=== PATIENT | female | born 1955 | race Caucasian/White ===

== ENCOUNTER 2018-04-14 05:33 | Day surgery (SDC) | payer OTHER ==
[2018-04-14 06:21] LABS: BEDSIDE GLUCOSE 108 MG/DL (80-115)
[2018-04-14] MEDS: GABAPENTIN 100 MG CAP PO (06:50)
[2018-04-14] MEDS: LR 1,000 ML IV ×2 (06:51→11:00)
[2018-04-14] MEDS: PERCOCET 5MG/325MG TAB PO (06:51)
[2018-04-14] MEDS ORDERED: LIDOCAINE 2% INJ 100 MG/5 ML SDV (FOR ANES.) As Ordered (07:09)
[2018-04-14] MEDS ORDERED: ROCURONIUM BROMIDE 50 MG/5 ML VIAL As Ordered (07:09)
[2018-04-14] MEDS ORDERED: PROPOFOL 200 MG/20 ML VIAL As Ordered (07:09)
[2018-04-14] MEDS ORDERED: fentaNYL 100 MCG/2 ML INJECTION (J3010) As Ordered (07:10)
[2018-04-14] MEDS ORDERED: MIDAZOLAM INJ 2 MG/2 ML VIAL (J2250) As Ordered (07:10)
[2018-04-14] MEDS ORDERED: dexameTHASONE 4 MG/ML 1ML VIAL (J1100) As Ordered (07:59)
[2018-04-14] MEDS ORDERED: HYDROmorphone HCL 2 MG/ML 1ML VIAL (J1170) As Ordered (07:59)
[2018-04-14] MEDS ORDERED: ePHEDrine SULFATE 25 MG/5 ML(5MG/ML) SYRINGE As Ordered (08:21)
[2018-04-14] MEDS ORDERED: PHENYLephrine HCL 500 MCG/5 ML (100MCG/ML) SYRINGE (J2370) As Ordered (08:33)
[2018-04-14] MEDS: BACITRACIN PWD 50,000 UNITS VIAL As Ordered ×2 (08:44→08:45)
[2018-04-14] MEDS: THROMBIN SOLN 20,000 UNITS KIT As Ordered (08:45)
[2018-04-14] MEDS: METAMUCIL (PSYLLIUM) PACKET PO (09:00)
[2018-04-14] MEDS ORDERED: CALCIUM CHLORIDE 10% 1 GM/10 ML SYR As Ordered (09:26)
[2018-04-14] MEDS ORDERED: GLYCOPYRROLATE INJ 0.2 MG/ML 2 ML VIAL As Ordered (09:35)
[2018-04-14] MEDS ORDERED: NEOSTIGMINE 10 MG/10 ML VIAL (J2710) As Ordered (09:35)
[2018-04-14] MEDS ORDERED: ONDANSETRON 4MG/2ML VIAL (J2405) As Ordered (09:35)
[2018-04-14] MEDS: BUPIVACAINE/EPIN 0.25% 30 ML VIAL As Ordered (09:54)
[2018-04-14] MEDS ORDERED: PERCOCET 5MG/325MG TAB PO (10:45)
[2018-04-14] MEDS ORDERED: D5W/LR 1,000 ML IV (10:45)
[2018-04-14 10:51] LABS: BEDSIDE GLUCOSE 197 MG/DL (80-115)
[2018-04-14] MEDS ORDERED: ONDANSETRON 4MG/2ML VIAL (J2405) IV (11:00)
[2018-04-14] MEDS ORDERED: fentaNYL 100 MCG/2 ML INJECTION (J3010) IV (11:00)
[2018-04-14] MEDS ORDERED: HYDROmorphone HCL 1 MG/ML SYRINGE (J1170) IV ×2 (11:00)
[2018-04-14] MEDS: HumaLOG INSULIN (NovoLOG) PER UNIT SC ×3 (12:00→21:22)
[2018-04-14] MEDS ORDERED: ceFAZolin 1GM INJ (J0690 PER 500MG) As Ordered (14:42)
[2018-04-14] MEDS ORDERED: HYDROMORPHONE HCL 0.5 MG/ 0.5 ML SYRINGE (J1170 PER 1) IV ×2 (15:45)
[2018-04-14 16:41] LABS: BEDSIDE GLUCOSE 306 MG/DL (80-115)
[2018-04-14] MEDS ORDERED: metFORMIN XR 500MG TAB *GLUCOPHAGE XR PO (18:15)
[2018-04-14 20:28] LABS: BEDSIDE GLUCOSE 310 MG/DL (80-115)
[2018-04-14] MEDS: BENAZEPRIL 20 MG TAB PO (21:21)
[2018-04-14] MEDS: amLODIPine 5 MG TAB PO (21:21)
[2018-04-15 06:01] LABS: BEDSIDE GLUCOSE 218 MG/DL (80-115)
[2018-04-15] MEDS: METAMUCIL (PSYLLIUM) PACKET PO (07:53)
[2018-04-15] MEDS: metFORMIN (GLUCOPHAGE) 1000 MG TABLET PO (07:55)
[2018-04-15] MEDS: HumaLOG INSULIN (NovoLOG) PER UNIT SC (07:55)
[2018-04-15] MEDS: BENAZEPRIL 20 MG TAB PO (07:57)
[2018-04-15] MEDS: amLODIPine 5 MG TAB PO (07:58)
[2018-04-15] MEDS: glipiZIDE (GLUCOTROL) 5 MG TAB PO (07:59)
[2018-04-15] MEDS: PERCOCET 5MG/325MG TAB PO (08:09)
== END 2018-04-15 09:30 | disposition home or self-care (01) ==
LOC: M SDC 05:33 → M MS5PR 15:20
DX: M48.061 Spinal stenosis, lumbar region without neurogenic claudication (principal); M51.26 Other intervertebral disc displacement, lumbar region; M12.88 Other specific arthropathies, not elsewhere classified, other specified site; I10 Essential (primary) hypertension; E78.00 Pure hypercholesterolemia, unspecified; E11.9 Type 2 diabetes mellitus without complications; M23.203 Derangement of unspecified medial meniscus due to old tear or injury, right knee; Z88.1 Allergy status to other antibiotic agents; Z88.6 Allergy status to analgesic agent; Z88.8 Allergy status to other drugs, medicaments and biological substances; Z79.899 Other long term (current) drug therapy; Z79.84 Long term (current) use of oral hypoglycemic drugs; Z72.0 Tobacco use
CPT/HCPCS: 63030

== ENCOUNTER 2019-04-26 16:57 | Emergency (ER) | payer OTHER ==
[~2019-04-26] VITALS: Ht 165.1 cm; Wt 75.5 kg
[~2019-04-26 16:57] MED LIST: AMLO5TAB6 PO; BENA20TA8 PO; CLAR10CA3 PO; CYAN100049 PO; FLON1SPR NARES; GLIP5TAB8 PO; HYDR25TAB PO; JANU100T PO; LEXA1TAB PO; METF-700 PO; VITA-176 PO
[2019-04-26 16:58] VITALS: BP 181/75
[2019-04-26] MEDS ORDERED: diazePAM 5 MG TAB PO ONE (18:45)
== END 2019-04-26 19:47 | disposition home or self-care (01) ==
LOC: M ED 16:57
DX: M51.26 Other intervertebral disc displacement, lumbar region (principal); M54.16 Radiculopathy, lumbar region; R20.0 Anesthesia of skin; I10 Essential (primary) hypertension; E11.9 Type 2 diabetes mellitus without complications; F17.200 Nicotine dependence, unspecified, uncomplicated